=== PATIENT | male | born 1980 | race Two or more races ===

== ENCOUNTER 2023-05-25 19:17 | Emergency (ER) | payer MEDICAID ==
[~2023-05-25] VITALS: Ht 162.6 cm; Wt 73.0 kg
[~2023-05-25 19:17] MED LIST: ACET-2708 MT
[2023-05-25 19:22] VITALS: BP 106/70; PULSE 98; RESP 16; TEMP 98.7; O2SAT 98
== END 2023-05-25 22:17 | disposition left against medical advice (07) ==
LOC: ER 20:29
DX: Z53.21 Procedure and treatment not carried out due to patient leaving prior to being seen by health care provider (principal)
CPT/HCPCS: 99281

== ENCOUNTER 2024-12-09 09:24 | Emergency (ER) | payer MEDICAID ==
[~2024-12-09] VITALS: Ht 170.2 cm; Wt 73.0 kg
[2024-12-09 09:26] VITALS: BP 126/82; PULSE 115; RESP 18; TEMP 36.9; O2SAT 98
== END 2024-12-09 14:01 | disposition left against medical advice (07) ==
LOC: ER 09:24
DX: M79.606 Pain in leg, unspecified (principal); Z53.21 Procedure and treatment not carried out due to patient leaving prior to being seen by health care provider